=== PATIENT | female | born 1965 | race African-American/Black ===

== ENCOUNTER 2016-04-30 10:28 | Day surgery (SDC) | payer OTHER ==
--- NOTE | 2016-04-24 15:46 | HP ---
DATE OF ADMISSION: ADDENDUM PAST MEDICAL HISTORY: Nil. No history of hypertension, coronary artery disease, diabetes, respiratory, renal or hepatic insufficiency. PAST SURGICAL HISTORY: Significant for section in 1986 and in 2000. She also had a fibroid removed from her uterus in 1998. ALLERGIES: None known. CURRENT MEDICATIONS: Triamterene/hydrochlorothiazide 37.5/25. SOCIAL HISTORY: Negative for tobacco, negative alcohol. FAMILY HISTORY: Father with history of heart disease. Mother with a history of diabetes. REVIEW OF SYSTEMS: Nil. BHARGAVI NOONAN M.D. [id number]
--- NOTE | 2016-04-28 11:40 | HP ---
Patient is to be admitted to the hospital on April 30, 2016. HISTORY: This is a 51-year-old woman who was initially seen in January of 2016 when she presented to the [facility] Emergency Room with abdominal pain, nausea, and vomiting. She had epigastric pain at that time and was noted to have elevated liver function studies. Ultrasound confirmed gallstones with a mildly thickened gallbladder and no pericholecystic fluid. She was also noted to have a prominent bile duct on ultrasound measuring up to 6 mm in size. During that admission, she underwent a CT scan of the abdomen and pelvis as well which was unremarkable with the exception of what was described as a possible duodenal mass. CBD was normal in size on the CT evaluation. Subsequent MRCP was negative at that time and no mass was seen in the duodenum. The patients symptoms resolved. She subsequently underwent an upper endoscopy under the care of Dr. Falk, when a small polyp was noted in the duodenum near the sphincter of Oddi which was felt to be benign. Dr. Falk did not feel it was an indication for ERCP and the patient was discharged from [facility] with plans for eventual cholecystectomy once her liver chemistries had normalized. Her bilirubin had been 2.0 with her AST of 449 and her ALT of 461 in the face of an alkaline phosphatase of 255. Outpatient laboratory data from March 05, 2016, demonstrated that her liver functions had significantly improved. However, she remained with a mildly elevated alkaline phosphatase of 186 and an ALT of 58. Her alkaline phosphatase was sent for isoenzyme fractionation, which was indeterminate. The patient was recently seen by Dr. Tigre Longoria, of the [facility], for further evaluation. He repeated her endoscopy and found two polyps in her duodenum. She also had an endoscopic ultrasound evaluation at that time that demonstrated no findings within the common bile duct. His repeat laboratory study demonstrated a mildly elevated GGPT and mildly elevated CEA. A repeat MRCP was ordered and again was unremarkable with the exception of a 6-mm common bile duct. Extensive laboratory and stool samples were sent as well and after exhaustive workup, it was felt that her elevated liver function studies possibly represented continued intermittent passage of sludge/gallstones. The current plan is to proceed with cholecystectomy. If the patient develops postoperative pain or a change in her liver functions, she will, at that point, need to undergo an ERCP. It was felt by Dr. Longoria that the risks of ERCP were not warranted in the face of a negative endoscopic ultrasound evaluation. The imaging studies demonstrated no malignancy. The patient presents now for surgery, understanding that she may require a postoperative ERCP if her symptoms do not improve or if her liver function abnormalities continue to remain abnormal or become more elevated. PAST MEDICAL HISTORY: Nil. No history of hypertension, coronary artery disease , diabetes, respiratory, renal or hepatic insufficiency. PAST SURGICAL HISTORY: Significant for section in 1986 and in 2000. She also had a fibroid removed from her uterus in 1998. ALLERGIES: None known. CURRENT MEDICATIONS: Triamterene/hydrochlorothiazide 37.5/25. SOCIAL HISTORY: Negative for tobacco, negative alcohol. FAMILY HISTORY: Father with history of heart disease. Mother with a history of diabetes. REVIEW OF SYSTEMS: Nil. PHYSICAL EXAMINATION: Abdomen: Obese, soft, nontender. No obvious hernias. Trace edema of her lower extremities. IMPRESSION: A 51-year-old woman with cholelithiasis admitted to the hospital previously with epigastric abdominal pain, nausea, and vomiting, in the face of elevated liver function studies. She had extensive workup considering her liver function elevation. It did not entirely return to normal. Magnetic resonance cholangiopancreatography x2 unremarkable. Endoscopies and endoscopic ultrasound evaluation demonstrated no etiology for her elevated liver function studies. PLAN: At this time, the patient presents for a laparoscopic cholecystectomy. Prophylactic antibiotics to be given. The possibilities of a retained stone or the return of her symptoms have been discussed at length with the patient. The possibility that the surgery is not therapeutic has been made clear. The possibility of a missed diagnosis, was also discussed. Indications, alternatives and possible complications including the possibility of a bile duct injury, cystic duct stump leak, bleeding requiring transfusion, an injury to viscera, subsequent potential hernia have been reviewed. The patient understands the risks of the surgery and is agreeable. We will proceed with a laparoscopic cholecystectomy. BHARGAVI NOONAN M.D. [id number] MTDD
[2016-04-29 12:38] VITALS: BMI 37.8
[2016-04-30] MEDS ORDERED: TRIAMTERENE AND HCTZ - 37.5 MG/25 MG CAPSULE PO PRN (14:41)
[2016-04-30] MEDS ORDERED: ACETAMINOPHEN 325 MG TABLET (FP) PO PRN (14:42)
[2016-04-30] MEDS ORDERED: oxyCODONE HCL 5 MG TABLET PO PRN (14:42)
[2016-04-30] MEDS ORDERED: morphine CARPU-JECT 4 MG/1 ML DISP.SYRIN IVPB PRN (14:42)
[2016-04-30] MEDS ORDERED: IBUPROFEN 800 MG/8 ML IJ IVPB PRN (14:44)
[2016-04-30] MEDS ORDERED: D5-1/2NS+20 MEQ KCL - 1,000 ML IV SCH (14:45)
[2016-04-30] MEDS ORDERED: MIDAZOLAM HCL 2 MG/2 ML SINGLE DOSE VIAL ONE (15:15)
[2016-04-30] MEDS ORDERED: DEXAMETHASONE SOD PHOSPHATE 4 MG/1 ML VIAL ONE ×2 (15:22→16:06)
[2016-04-30] MEDS ORDERED: ROCURONIUM BROMIDE 50 MG/5 ML VIAL ONE (15:24)
[2016-04-30] MEDS ORDERED: PROPOFOL 20 ML ONE (15:24)
[2016-04-30] MEDS ORDERED: LIDOCAINE HCL/PF 2% SDV 5ML VIAL ONE (15:24)
[2016-04-30] MEDS ORDERED: ERTAPENEM SODIUM 1 GM VIAL ONE (15:29)
[2016-04-30] MEDS ORDERED: NEOSTIGMINE METHYLSULFATE 0.5 MG/ML - 10 ML MDV ONE (15:38)
[2016-04-30] MEDS ORDERED: ePHEDrine SULFATE 50 MG/1 ML AMPULE ONE (15:42)
[2016-04-30] MEDS ORDERED: GLYCOPYRROLATE 0.2 MG/1 ML VIAL ONE (15:43)
[2016-04-30] MEDS ORDERED: ERTAPENEM SODIUM 1 GM VIAL IVPB ONE (15:47)
[2016-05-01] MEDS ORDERED: BIOTIN 10 MG PO SCH (10:00)
[2016-05-01] MEDS ORDERED: PANTOPRAZOLE SODIUM 100 ML IVPB SCH (10:00)
[2016-05-01] MEDS ORDERED: ENOXAPARIN NA (PORCINE) 40 MG/0.4 ML DISP.SYRIN SQ SCH (10:00)
[2016-05-01 14:21] VITALS: BP 117/63; PULSE 76; TEMP 98.5
--- NOTE | 2016-05-01 14:35 | OP ---
DATE OF OPERATION: 04/30/2016 PREOPERATIVE DIAGNOSIS: Chronic cholecystitis/cholelithiasis. POSTOPERATIVE DIAGNOSIS: Chronic cholecystitis/cholelithiasis. PROCEDURE: Laparoscopic cholecystectomy. OPERATING SURGEON: Bhargavi Grant MD FOOD TECHNOLOGY TEACHER: Alvin Mcintosh MD ANESTHESIA: Hieu Joy MD (general) HISTORY: This is a 51-year-old woman who presents for laparoscopic removal of gallbladder as management of symptomatic cholelithiasis. Indications, alternatives, and possible complications reviewed. Consent was obtained. DESCRIPTION OF PROCEDURE: With the patient in the supine position and after general anesthesia, the abdomen was prepped and draped in sterile fashion using chlorhexidine. A small incision was made just beneath the umbilicus through which a Veress needle was placed into the abdominal cavity. Abdominal cavity was insufflated to an adequate pressure and volume using CO2 gas. The Veress needle was removed. An 11-mm trocar port was placed through the umbilical wound. The camera lens was passed through this port, and intraabdominal cavity visualized. Under direct vision, two 5-mm right anterolateral ports were placed which plan was made to maintain traction in the gallbladder and aid in the dissection. An 11- mm port was placed in the epigastrium through which the operating instruments were passed. A limited exploration of the abdomen revealed no significant findings other than adhesions about the gallbladder. These were taken down under direct vision exposing the entire gallbladder and hepatoduodenal ligament. The peritoneum and hepatoduodenal ligament were incised. The cystic duct was identified. The cystic duct was clipped close to the gallbladder junction and where it was subsequently divided. The adjacent artery was managed similarly. Ultimately, the gallbladder was removed from the gallbladder bed, lysing its peritoneal attachments using electrocautery. Liver bed was inspected, and adequate hemostasis was noted. The gallbladder was freed. All ports were then removed under direct vision. No bleeding identified at the port sites. The gallbladder was then passed through the umbilical port and delivered without difficulty. The pneumoperitoneum was allowed to escape. The fascia at the umbilicus was approximated using interrupted 0 Vicryl suture. All skin wounds were closed using subcuticular 4-0 Biosyn sutures. NEEDLE AND INSTRUMENT COUNT: Correct. ESTIMATED BLOOD LOSS: Minimal. SPECIMENS: Gallbladder. DRAINS: None. Patient tolerated the procedure. The procedure was terminated. BHARGAVI GRANT M.D. [id number] MTDD
--- NOTE | 2016-05-02 12:38 | PATH ---
Surgical Pathology Report Patient Name: HEIDY BROCK [facility]. Rec. #: [id number] /Age/Gender: 1965 (Age: 51) / F Account: [id number] Location: AMBULATORY SURG Taken: 04/30/2016 Received: 05/01/2016 Reported: 05/02/2016 Physicians: Alvin Mcintosh Specimen(s) Received GALLBLADDER Clinical History Calculus of gallbladder Final Diagnosis GALLBLADDER, CHOLECYSTECTOMY: CHRONIC CHOLECYSTITIS, CHOLESTEROLOSIS, AND CHOLELITHIASIS. Electronically Signed Konrad Casas M.D. Gross Description Received in formalin, labeled "gallbladder," is a 8.5 x 2.3 x 2.0 cm. gallbladder with a 1.0 cm. in length portion of cystic duct attached. The outer surface is purple and varies from smooth to shaggy. The lumen contains dark green bile, along with numerous lobulated yellow calculi and fragments of calculi each of which is being less than 0.1 cm in greatest dimension up to 1.3 cm in greatest dimension.. The mucosa is green and yellow speckled with no lesions identified. The wall of the gallbladder measures 0.2 cm. in thickness. Metal Weigher sections are submitted in one cassette. [facility]/05/01/2016 [facility]/05/01/2016
== END 2016-05-01 15:46 | disposition home or self-care (01) ==
LOC: JASU-SURG 10:28 → JASUSAT 10:28 → J6S 18:30 → JASUSAT 05-01 15:46
PROVIDERS: ATTEND Surgery
PROC: 0FT44ZZ Resection of Gallbladder, Percutaneous Endoscopic Approach (ICD-10-PCS; principal; 2016-04-30 12:00)
DX: K80.10 Calculus of gallbladder with chronic cholecystitis without obstruction (principal)
CPT/HCPCS: 88304-TC; 94010; 94760